=== PATIENT | male | born 1970 | race Caucasian/White ===

== ENCOUNTER 2017-08-14 11:26 | Emergency (ER) | payer SELFPAY ==
[~2017-08-14] VITALS: Ht 177.8 cm; Wt 95.3 kg
[2017-08-14 12:08] LABS: BASOPHILS % 0.5 % (0.0-1.0); EOSINOPHILS # (AUTO) 0.8 (0.0-0.4); EOSINOPHILS % 8.8 % (0.0-6.0); HEMATOCRIT 41.3 % (38.2-49.6); HEMOGLOBIN 14.7 g/dL (14.0-18.0); LYMPHOCYTES # (AUTO) 3.2 (1.0-3.2); LYMPHOCYTES % 37.3 % (18.0-39.1); MEAN CORPUSCULAR HEMOGLOBIN 32.8 pg (28-32); MEAN CORPUSCULAR HGB CONC 35.6 g/dL (31-35); MEAN CORPUSCULAR VOLUME 92.2 fL (81-99); MONOCYTES # (AUTO) 0.8 (0.2-0.8); NEUTROPHILS # (AUTO) 3.8 (2.1-6.9); NEUTROPHILS % 43.9 % (38.7-80.0); PLATELET COUNT 166 x10e3/uL (140-360); RED BLOOD COUNT 4.48 x10e6/uL (4.3-5.7); RED CELL DISTRIBUTION WIDTH 11.8 % (11.7-14.4)
[2017-08-14 12:23] LABS: ALANINE AMINOTRANSFERASE 78 IU/L (0-55); ALBUMIN 3.7 g/dL (3.5-5.0); ALKALINE PHOSPHATASE 64 IU/L (40-150); ANION GAP 13.6 mmol/L (8-16); BLOOD UREA NITROGEN 12 mg/dL (7-26); BUN/CREATININE RATIO 12 (6-25); CARBON DIOXIDE 26 mmol/L (22-29); CHLORIDE 105 mmol/L (98-107); CREATINE KINASE 155 IU/L (30-200); CREATININE, SERUM 0.99 mg/dL (0.72-1.25); EST GLOMERULAR FILTRATION RATE > 60 ML/MIN (60-); GLUCOSE 89 mg/dL (74-118); POTASSIUM 3.6 mmol/L (3.5-5.1); SODIUM 141 mmol/L (136-145)
[2017-08-14 12:32] LABS: VALPROIC ACID 38 ug/mL (50-100)
--- NOTE | 2017-08-14 12:54 | Diagnostic Imaging Report ---
Examination: CT BRAIN WITHOUT CONTRAST History:Seizures. Head trauma and injury Comparison studies:None Technique: Axial images were obtained from the skull base to the vertex. Coronal and sagittal images reconstructed from the axial data. Intravenous contrast: None Findings: Scalp: Small left parietal scalp hematoma. Bones: No fractures, blastic or lytic lesions. Brain sulci: Appropriate for age. Ventricles: Normal in size and configuration. No hydrocephalus. Extra-axial space: No abnormalities. Parenchyma: No abnormal densities. No masses, hemorrhage, or acute or chronic cortical based vascular insults.. Sellar/suprasellar region: No abnormalities. Craniocervical junction: Patent foramen magnum. No Chiari one malformation. Incidental findings: Underdeveloped under pneumatized bilateral mastoid air cells. Impression: 1. Small left parietal scalp hematoma. 2. No acute intracranial abnormalities. Signed by: Dr. Shameka Dick M.D. on 08/14/2017 12:51 PM
[2017-08-14] MEDS ORDERED: DEPAKOTE ER 500MG TAB(ONCE DAILY) PO SCH (13:00)
[2017-08-14] MEDS ORDERED: TETANUS/DIPHTHERIA TOX ADULT 0.5 ML SYR IM ONE (13:30)
[2017-08-14 14:12] VITALS: BP 130/91
== END 2017-08-14 14:23 | disposition home or self-care (01) ==
LOC: ER 11:33
DX: G40.409 Other generalized epilepsy and epileptic syndromes, not intractable, without status epilepticus (principal); S01.01XA Laceration without foreign body of scalp, initial encounter; M54.2 Cervicalgia
CPT/HCPCS: 36415; 70450; 80053; 80164; 82550; 82553; 84484; 85025; 90714; 99284